=== PATIENT | female | born 1995 | race Two or more races ===

== ENCOUNTER 2020-03-29 16:11 | Emergency (ER) | payer BC ==
[~2020-03-29] VITALS: Ht 149.9 cm; Wt 83.2 kg
--- NOTE | 2020-03-29 16:33 | NUR ---
BREAK RN: PT AMBULATED BACK TO ROOM. PER PT "I'M HAVING CHEST PAIN AND DIFFICULTY BREATHING" THAT STARTED YESTERDAY. DENIES N/V/D. PT RESTING IN [facility], ALL MONITORING IN PLACE, NADN AT THIS TIME. PER PT NO NEEDS AT THIS TIME.
[2020-03-29] MEDS ORDERED: MAALOX/HYOSCYAMINE/LIDOCAINE 45 ML BTL PO ONE (17:00)
[2020-03-29] MEDS ORDERED: MAALOX/HYOSCYAMINE/LIDOCAINE 45 ML BTL ONE (17:06)
[2020-03-29 17:38] VITALS: BP 115/75
--- NOTE | 2020-03-29 17:38 | NUR ---
PT RESTING IN [facility]. VSS. PT REPORTS "I THINK THE MEDICINE YOU GAVE ME HELPED A LITTLE BIT"
--- NOTE | 2020-03-29 18:20 | NUR ---
PT REC'VD DISCHARGE INSTRUCTIONS AND EDUCATION. PT HAD NO FURTHER QUESTIONS. PT AMBULATED TO DC AREA, STEADY GAIT.
== END 2020-03-29 18:24 | disposition home or self-care (01) ==
LOC: ED 17:48
DX: M94.0 Chondrocostal junction syndrome [Tietze] (principal); R06.02 Shortness of breath; R07.89 Other chest pain; R11.10 Vomiting, unspecified
CPT/HCPCS: 71046; 93005; 99283; 99284